=== PATIENT | male | born 1965 | race Caucasian/White ===

== ENCOUNTER 2017-10-22 22:08 | Inpatient (IN) ==
[2017-10-22] MEDS ORDERED: Ondansetron 4 MG/2 ML VIAL IVP ONE (22:32)
--- NOTE | 2017-10-22 22:36 | Emergency Department Note ---
Disposition Clinical Impression: Chronic liver disease Ascites Qualifiers: Ascites type: other type Qualified Code(s): R18.8 - Other ascites Disposition: Admitted As Inpatient Time of Disposition: 00:24 Abdominal Pain HPI - General Chief Complaint: ED Abdominal Pain Stated Complaint: abd swelling,constipation Time Seen by Provider: 10/22/17 22:14 Source: patient Nursing Notes Reviewed: Yes Vital Signs Reviewed: Yes - History of Present Illness Pt Subjective Complaint: abdominal pain Onset (ago): day(s) (2) Consistency: Worsening Location: diffuse Pain Scale: 8 Quality: fullness Radiation: none Migration to: no migration Improves with: nothing Worsens with: other (supine) Context: other (h/o of EtOH) Associated symptoms: Reports: nausea, other (dark urine). Denies: vomiting, diarrhea, fever, chills, melena - Related Data Allergies Allergy/AdvReac Type Severity Reaction Status Date / Time No Known Allergies Allergy Verified 10/22/17 22:12 All systems ED: reviewed and negative except as stated. Review of Systems: As Per HPI Constitutional: Denies: fever, chills, weakness Eyes: Denies: vision change ENT ED: Denies: ear pain, throat pain Cardiovascular: Denies: chest pain, palpitations, dyspnea on exertion Respiratory: Reports: cough (when smoking). Denies: dyspnea, wheezes, hemoptysis Gastrointestinal: Reports: as per HPI. Denies: diarrhea, constipation, hematemesis, melena, hematochezia Genitourinary: Reports: as per HPI Musculoskeletal: Denies: back pain, neck pain Integumentary: Denies: rash Neurological: Denies: headache, weakness, numbness, paresthesias Endocrine: Denies: fatigue Hematological/Lymphatic: Denies: easy bleeding Allergic/Immunologic: Denies: facial swelling Abdominal Pain PMH - Past Medical History Medical history: Reports: no medical history Male Surgical History: Reports: orthopedic, other, other Psychiatric history: Reports: no psych history - Social History Smoking status: Current every day smoker Alcohol use: Reports: heavy Drug use: Reports: none Physical Exam - General Limitations: no limitations General appearance: alert, in no apparent distress - Head Head exam: atraumatic, normocephalic - Eye Eye exam: Present: normal appearance, PERRL, EOMI, scleral icterus. Absent: conjunctival injection - ENT ENT exam: normal exam, normal oropharynx, mucous membranes moist, normal external ear exam - Neck Neck exam: Present: normal inspection, full ROM. Absent: tenderness, lymphadenopathy, thyromegaly, other (JVD) - Chest Chest inspection: Present: normal inspection, symmetric chest wall rise. Absent : tenderness - Respiratory Respiratory exam: Present: normal lung sounds bilaterally. Absent: respiratory distress, wheezes, stridor - Cardiovascular Cardiovascular exam: Present: normal rhythm, tachycardia, normal heart sounds - Abdominal Exam Abdominal exam: Present: soft, Non-Tender, ascites. Absent: guarding, rebound - Extremities Exam Extremities exam: Present: normal inspection, full ROM, normal capillary refill. Absent: pedal edema - Back Exam Back exam: Present: full ROM. Absent: tenderness, CVA tenderness (R), CVA tenderness (L) - Neurological Exam Neurological exam: Present: alert, oriented X3 - Psychiatric Psychiatric exam: Present: normal affect, normal mood - Skin Skin exam: Present: warm, dry, intact, normal color. Absent: rash, cyanosis, diaphoresis Course Course Narrative: Patient is a 51-year-old male smoker that presents with complaint of abdominal distention and fullness that has been worsening over the past 2 days. It's accompanied with some nausea. He mentions daily alcohol use but denies any known history of liver disease. He is coming by a female friend, they both deny any skin color changes, but patient mentions his urine has been a dark orange " for a while now ". No reported fevers, chills, surgeries. Patient is tachycardic otherwise vitals within normal limits. Mentions h/o of HTN taking unknown medication. Denies any other meds or PMHx but admits does not go to doctor often. Pt mentions daily etoh use, typicallly 10 liquor shots daily after work. Last drink 14:00 today. Appears clinically sober. Alert and oriented. denies any h/o of withdrawl symptoms. Patient seen and examined. No acute distress, does not look toxic. Patient's face appears jaundice, mild scleral icterus. Normal oropharynx. No JVD. Lungs clear to auscultation. Tachycardic regular rhythm. Ascites present. Nontender abdomen although patient appears uncomfortable. No pedal edema. Antiemetics ordered. Workup ordered. - Reevaluation(s) Reevaluation #1: Patient initally tachycardic, but no other source criteria at this time. tachycardia improved after 2L O2 placed. Clear fluid. CBC shows no elevation of white count or bands. Lactic acid elevated. Will order fluids. Diagnostic paracentesis performed analysis ordered. EKG sinus rhythm, with LVH , otherwise no acute findings. Hypokalemic, PO potassium ordered. Time: 00:23 Reevaluation #2: Body Fluid analysis within normal limits. CT report hepatic steatosis with evidence of portal hypertension, cholelithiasis, cholecystitis not excluded. Colonic wall thickening nonspecific. Discussed with Dr. Tran, who advised for IV potassium. Pt discussed with and accepted by hospitalists Dr. Gaytan. Time: 01:33 Vital Signs Temperature 98.9 F 10/22/17 22:09 Pulse Rate 122 10/22/17 22:09 Respiratory Rate 20 10/22/17 22:09 Blood Pressure 128/86 10/22/17 22:09 O2 Sat by Pulse Oximetry 94 10/22/17 22:09 Temperature 99.5 F 10/23/17 01:37 Pulse Rate 108 10/23/17 00:41 Respiratory Rate 16 10/23/17 01:37 Blood Pressure 110/76 10/23/17 01:37 O2 Sat by Pulse Oximetry 97 10/23/17 00:41 Oxygen Delivery Oxygen Delivery Nasal Cannula Procedures - Paracentesis Consent Obtained: verbal consent Time Out Performed: Yes Indication: Ascites Procedure: diagnostic paracentesis Location: RLQ Local Anesthetic: lidocaine 1%, with epi Amount of anesthesia used (mL): 3 Bedside Ultrasound Used: yes, Ascites confirmed and location marked Preparation: sterile prep and drape Amount of Fluid Obtained: 60 Fluid: clear, sent to lab for analysis Size of Needle Used: 22 (1.5inch) Post Procedure Exam: awake, alert Complications: pain Abdominal Pain - MDM Narrative Medical decision making narrative: Patient is a chronic alcohol drinker. No previous diagnosis of liver disease. He had drank before his arrival here. He denies any history of withdrawals or DTs. Workup for ascites consistent with chronic liver disease. CT results or hepatic steatosis with evidence of portal hypertension. Patient was discussed with Dr. Morgan who had face time with patient and agreed with workup and evaluation. Diagnostic paracentesis performed. No evidence of infection at this point. Patient was given by mouth potassium and write her for hypokalemia. Fluids were elevated lactic. He was discussed with hospitalist who accepted patient for inpatient evaluation and treatment. Vitals have been stable. Patient has declined analgesics here. Resting comfortable in exam bed. - Medical Records Medical records reviewed: Yes I reviewed the patient's medical records. - Lab Data Lab results reviewed: Yes I reviewed the patient's lab results. Result diagrams: 10/22/17 22:45 10/22/17 22:45 Lab Results 10/22/17 10/22/17 10/22/17 Range/Units 22:18 22:45 22:45 WBC 8.8 (4.3-11.1) K/mcL RBC 3.87 L (4.19-5.50) M/mcL Hgb 14.9 (12.9-16.9) g/dL Hct 40.5 (37.5-50.1) % MCV 104.7 H (83.0-100.0) fL MCH 38.5 H (28.0-33.3) pg MCHC 36.8 H (31.6-35.5) g/dL RDW 14.9 H (11.5-14.5) % Plt Count 127 L (140-400) K/mcL MPV 9.9 (9.4-12.4) fL Immature Gran % 0.3 (0-4) % Seg Neutrophils % 65.6 % Lymphocytes % 23.0 % Monocytes % 8.6 % Eosinophils % 0.9 % Basophils % 1.6 % Neutrophils # 5.7 (1.6-8.9) K/mcL Lymphocytes # 2.0 (0.6-4.6) K/mcL Monocytes # 0.8 (0.0-1.3) K/mcL Eosinophils # 0.1 (0.0-0.6) K/mcL Basophils # 0.1 (0.0-0.2) K/mcL Sodium 132 L (136-145) mEq/L Potassium 2.5 L* (3.5-5.1) mEq/L Chloride 86 L (98-107) mEq/L Carbon Dioxide 33 H (23-29) mEq/L BUN 8 (6-20) mg/dL Creatinine 0.68 L (0.70-1.30) mg/dL Est GFR ( Amer) > 60 (> 60) Est GFR (Non-Af Amer) > 60 (> 60) BUN/Creatinine Ratio 12 (6-26) Glucose 139 H (70-105) mg/dL Calculated Osmolality 275 L (280-300) Lactic Acid (0.5-2.2) mmol/L Calcium 8.5 L (8.6-10.3) mg/dL Total Bilirubin 9.7 H (0.3-1.0) mg/dL Direct Bilirubin 5.5 H (0.0-0.2) mg/dL Indirect Bilirubin 4.2 H (0.0-1.2) mg/dL AST 287 H (13-39) Units/L ALT 57 H (7-52) Units/L Alkaline Phosphatase 300 H (34-104) Units/L B-Natriuretic Peptide (Less than 100) pg/mL Serum Total Protein 6.8 (6.4-8.9) g/dL Albumin 3.5 (3.5-5.7) g/dL Globulin 3.3 (2.4-3.5) g/dL Albumin/Globulin Ratio 1.1 (1.1-2.2) Lipase 140 H (11-82) Units/L Urine Color [place] A (Yellow) Urine Clarity Hazy (Clear) Urine pH 6.5 (5.0-8.0) pH Units Ur Specific Lenore 1.021 (1.010-1.025) Urine Protein Trace (Neg-Trace) mg/dL Urine Glucose (UA) Normal (Normal) mg/dL Urine Ketones Trace H (Negative) mg/dL Urine Blood Negative (Negative) Urine Nitrite Positive A (Negative) Urine Bilirubin Large H (Negative) Urine Urobilinogen 4.0 H (Normal) mg/dL Ur Leukocyte Esterase Small H (Negative) Urine Microscopic RBC 0-3 (0-3) per hpf Urine Microscopic WBC 3-5 H (0-3) per hpf Ur Squamous Epith Cells Few (None-Few) per lpf Urine Bacteria Few (None-Few) per hpf Hyaline Casts Many H (None-Few) per lpf Urine Mucus Few (Few) Ur Oval Fat Bodies Present A (Not Present) Ur Culture Indicated? YES A (NO) Peritoneal Appearance (Clear) Peritoneal Volume mL Peritoneal RBC (0.000 - 0.002) M/mcL Periton Tot Nuc Cells (0-300) TNC/mcL Periton Neutrophils % Periton Lymphocytes % % Periton Monocytes % % Periton Other Cells % % Peritoneal Tot Protein (No Ref Range) g/dL Peritoneal Albumin (No Ref Range) g/dL Peritoneal LDH (No Ref Range) Units/L Peritoneal Glucose (No Ref Range) mg/dL Peritoneal Amylase (No Ref Range) Units/L Ethyl Alcohol (0-10) mg/dL 10/22/17 10/22/17 10/22/17 Range/Units 22:45 22:45 22:45 WBC (4.3-11.1) K/mcL RBC (4.19-5.50) M/mcL Hgb (12.9-16.9) g/dL Hct (37.5-50.1) % MCV (83.0-100.0) fL MCH (28.0-33.3) pg MCHC (31.6-35.5) g/dL RDW (11.5-14.5) % Plt Count (140-400) K/mcL MPV (9.4-12.4) fL Immature Gran % (0-4) % Seg Neutrophils % % Lymphocytes % % Monocytes % % Eosinophils % % Basophils % % Neutrophils # (1.6-8.9) K/mcL Lymphocytes # (0.6-4.6) K/mcL Monocytes # (0.0-1.3) K/mcL Eosinophils # (0.0-0.6) K/mcL Basophils # (0.0-0.2) K/mcL Sodium (136-145) mEq/L Potassium (3.5-5.1) mEq/L Chloride (98-107) mEq/L Carbon Dioxide (23-29) mEq/L BUN (6-20) mg/dL Creatinine (0.70-1.30) mg/dL Est GFR ( Amer) (> 60) Est GFR (Non-Af Amer) (> 60) BUN/Creatinine Ratio (6-26) Glucose (70-105) mg/dL Calculated Osmolality (280-300) Lactic Acid 4.6 H* (0.5-2.2) mmol/L Calcium (8.6-10.3) mg/dL Total Bilirubin (0.3-1.0) mg/dL Direct Bilirubin (0.0-0.2) mg/dL Indirect Bilirubin (0.0-1.2) mg/dL AST (13-39) Units/L ALT (7-52) Units/L Alkaline Phosphatase (34-104) Units/L B-Natriuretic Peptide 263 H (Less than 100) pg/mL Serum Total Protein (6.4-8.9) g/dL Albumin (3.5-5.7) g/dL Globulin (2.4-3.5) g/dL Albumin/Globulin Ratio (1.1-2.2) Lipase (11-82) Units/L Urine Color (Yellow) Urine Clarity (Clear) Urine pH (5.0-8.0) pH Units Ur Specific Lenore (1.010-1.025) Urine Protein (Neg-Trace) mg/dL Urine Glucose (UA) (Normal) mg/dL Urine Ketones (Negative) mg/dL Urine Blood (Negative) Urine Nitrite (Negative) Urine Bilirubin (Negative) Urine Urobilinogen (Normal) mg/dL Ur Leukocyte Esterase (Negative) Urine Microscopic RBC (0-3) per hpf Urine Microscopic WBC (0-3) per hpf Ur Squamous Epith Cells (None-Few) per lpf Urine Bacteria (None-Few) per hpf Hyaline Casts (None-Few) per lpf Urine Mucus (Few) Ur Oval Fat Bodies (Not Present) Ur Culture Indicated? (NO) Peritoneal Appearance (Clear) Peritoneal Volume mL Peritoneal RBC (0.000 - 0.002) M/mcL Periton Tot Nuc Cells (0-300) TNC/mcL Periton Neutrophils % Periton Lymphocytes % % Periton Monocytes % % Periton Other Cells % % Peritoneal Tot Protein (No Ref Range) g/dL Peritoneal Albumin (No Ref Range) g/dL Peritoneal LDH (No Ref Range) Units/L Peritoneal Glucose (No Ref Range) mg/dL Peritoneal Amylase (No Ref Range) Units/L Ethyl Alcohol 262 H (0-10) mg/dL 10/22/17 Range/Units 23:48 WBC (4.3-11.1) K/mcL RBC (4.19-5.50) M/mcL Hgb (12.9-16.9) g/dL Hct (37.5-50.1) % MCV (83.0-100.0) fL MCH (28.0-33.3) pg MCHC (31.6-35.5) g/dL RDW (11.5-14.5) % Plt Count (140-400) K/mcL MPV (9.4-12.4) fL Immature Gran % (0-4) % Seg Neutrophils % % Lymphocytes % % Monocytes % % Eosinophils % % Basophils % % Neutrophils # (1.6-8.9) K/mcL Lymphocytes # (0.6-4.6) K/mcL Monocytes # (0.0-1.3) K/mcL Eosinophils # (0.0-0.6) K/mcL Basophils # (0.0-0.2) K/mcL Sodium (136-145) mEq/L Potassium (3.5-5.1) mEq/L Chloride (98-107) mEq/L Carbon Dioxide (23-29) mEq/L BUN (6-20) mg/dL Creatinine (0.70-1.30) mg/dL Est GFR ( Amer) (> 60) Est GFR (Non-Af Amer) (> 60) BUN/Creatinine Ratio (6-26) Glucose (70-105) mg/dL Calculated Osmolality (280-300) Lactic Acid (0.5-2.2) mmol/L Calcium (8.6-10.3) mg/dL Total Bilirubin (0.3-1.0) mg/dL Direct Bilirubin (0.0-0.2) mg/dL Indirect Bilirubin (0.0-1.2) mg/dL AST (13-39) Units/L ALT (7-52) Units/L Alkaline Phosphatase (34-104) Units/L B-Natriuretic Peptide (Less than 100) pg/mL Serum Total Protein (6.4-8.9) g/dL Albumin (3.5-5.7) g/dL Globulin (2.4-3.5) g/dL Albumin/Globulin Ratio (1.1-2.2) Lipase (11-82) Units/L Urine Color (Yellow) Urine Clarity (Clear) Urine pH (5.0-8.0) pH Units Ur Specific Lenore (1.010-1.025) Urine Protein (Neg-Trace) mg/dL Urine Glucose (UA) (Normal) mg/dL Urine Ketones (Negative) mg/dL Urine Blood (Negative) Urine Nitrite (Negative) Urine Bilirubin (Negative) Urine Urobilinogen (Normal) mg/dL Ur Leukocyte Esterase (Negative) Urine Microscopic RBC (0-3) per hpf Urine Microscopic WBC (0-3) per hpf Ur Squamous Epith Cells (None-Few) per lpf Urine Bacteria (None-Few) per hpf Hyaline Casts (None-Few) per lpf Urine Mucus (Few) Ur Oval Fat Bodies (Not Present) Ur Culture Indicated? (NO) Peritoneal Appearance CLEAR (Clear) Peritoneal Volume 60.0 mL Peritoneal RBC < 0.002 (0.000 - 0.002) M/mcL Periton Tot Nuc Cells 91 (0-300) TNC/mcL Periton Neutrophils 2.0 % Periton Lymphocytes % 33.0 % Periton Monocytes % 11.0 % Periton Other Cells % 54.0 % Peritoneal Tot Protein < 3.0 (No Ref Range) g/dL Peritoneal Albumin < 1.5 (No Ref Range) g/dL Peritoneal LDH 43 (No Ref Range) Units/L Peritoneal Glucose 143 (No Ref Range) mg/dL Peritoneal Amylase 22 (No Ref Range) Units/L Ethyl Alcohol (0-10) mg/dL - Radiology Data Radiology results reviewed: Yes I reviewed the patient's radiology results. - EKG Data EKG attestation: Yes I reviewed and interpreted this EKG. EKG shows normal: sinus rhythm Rate: normal Voltage: c/w LVH When compared to previous EKG there are: previous EKG unavailable Interpretation: no acute changes Attestation Statement - Attestation Attestation: I, Aristides Morgan, examined this patient and my medical decision-making was reviewed with the PRODUCT ANALYST/PA/Advanced Practice Nurse/Resident Physician. I agree with the documented findings, disposition and treatment plan as described except to the extent set forth below. 51-year-old male presents emergency Department with concerns of abdominal distention. Patient denies significant abdominal pain or localization of the pain other than a feeling of stretching. Patient is a chronic alcoholic and drinks in upwards of at least 12 shots of bourbon a day. Last drink today was at noon. He has never gone a day without drinking within the past few years. Patient's abdomen is distended evaluation. He has a significant amount of ascites. Diagnostic paracentesis was performed which improved the patient's pain. CT of the abdomen and pelvis was unable to rule out acute cholecystitis however patient does not have pain in the right upper quadrant. There is no other evidence of acute surgical pathology. Patient is hypokalemic and has multiple other laboratory abnormalities. He will be admitted to the hospital for further care and evaluation.
[2017-10-22] MEDS ORDERED: Lidocaine/EPI 1:100k 1% 20 ML VIAL INFILT ONE (22:46)
[2017-10-22 23:03] LABS: Color,Urine Orange (Yellow)
[2017-10-22 23:04] LABS: Clarity,Urine Hazy (Clear)
[2017-10-22 23:06] LABS: Bilirubin,Urine Large (Negative); Blood,Urine Negative (Negative); Glucose,Urine (UA) Normal (Normal); Ketones,Urine Trace mg/dL (Negative); PH,Urine 6.5 pH Units (5.0-8.0); Specific Gravity,Urine 1.021 (1.010-1.025)
[2017-10-22 23:07] LABS: Leukocyte Esterase,Urine Small (Negative); Nitrite,Urine Positive (Negative); Protein,Urine Trace mg/dL (Neg-Trace)
[2017-10-22 23:20] LABS: RBC,Urine 0-3 per hpf (0-3); Squamous Epithelial Cell,Urine Few per lpf (None-Few)
[2017-10-22 23:27] LABS: Bacteria,Urine Few per hpf (None-Few); Hyaline Casts,Urine Many per lpf (None-Few); Mucus,Urine Few (Few); Oval Fat Bodies,Urine Present (Not Present)
[2017-10-22 23:28] LABS: Alanine Aminotransferase 57 Units/L (7-52); Albumin 3.5 g/dL (3.5-5.7); Albumin/Globulin Ratio 1.1 (1.1-2.2); Alkaline Phosphatase 300 Units/L (34-104); Aspartate Amino Transferase 287 Units/L (13-39); BUN/Creatinine Ratio 12 (6-26); Basophils # 0.1 K/mcL (0.0-0.2); Basophils % 1.6 %; Bilirubin,Direct 5.5 mg/dL (0.0-0.2); Bilirubin,Indirect 4.2 mg/dL (0.0-1.2); Bilirubin,Total 9.7 mg/dL (0.3-1.0); Blood Urea Nitrogen 8 mg/dL (6-20); Calcium 8.5 mg/dL (8.6-10.3); Carbon Dioxide 33 mEq/L (23-29); Chloride 86 mEq/L (98-107); Eosinophils # 0.1 K/mcL (0.0-0.6); Eosinophils % 0.9 %; Globulin 3.3 g/dL (2.4-3.5); Glucose 139 mg/dL (70-105); Hematocrit 40.5 % (37.5-50.1); Hemoglobin 14.9 g/dL (12.9-16.9); Immature Granulocytes % 0.3 % (0-4); Lipase 140 Units/L (11-82); Mean Corpuscular HGB Conc 36.8 g/dL (31.6-35.5); Mean Corpuscular Hemoglobin 38.5 pg (28.0-33.3); Mean Corpuscular Volume 104.7 fL (83.0-100.0); Mean Platelet Volume 9.9 fL (9.4-12.4); Monocytes # 0.8 K/mcL (0.0-1.3); Monocytes % 8.6 %; Neutrophils # 5.7 K/mcL (1.6-8.9); Osmolality,Calculated 275 (280-300); Platelet Count 127 K/mcL (140-400); Potassium 2.5 mEq/L (3.5-5.1); Red Blood Count 3.87 M/mcL (4.19-5.50); Red Cell Distribution Width 14.9 % (11.5-14.5); Segmented Neutrophils % 65.6 %; Sodium 132 mEq/L (136-145); Total Protein 6.8 g/dL (6.4-8.9); eGFR For African Americans > 60 (> 60); eGFR For Non-African Americans > 60 (> 60)
[2017-10-23 00:12] LABS: RBC,Peritoneal Fluid < 0.002 M/mcL
[2017-10-23] MEDS ORDERED: 0.9 % Sodium Chloride 1,000 ML IVC ONE (00:14)
[2017-10-23 00:35] LABS: Amylase,Peritoneal Fluid 22 Units/L (No Ref Range); Glucose,Peritoneal Fluid 143 mg/dL (No Ref Range); LDH,Peritoneal Fluid 43 Units/L (No Ref Range); Total Protein,Peritoneal Fluid < 3.0 g/dL (No Ref Range)
[2017-10-23 01:00] LABS: Appearance of Peritoneal Fl CLEAR (Clear)
[2017-10-23] MEDS ORDERED: Potassium Chloride 40 MEQ, Lidocaine 1% 2 ML in D5% in Water 500 ML IVPB ONE (01:30)
[2017-10-23] MEDS ORDERED: Naloxone 0.4 MG/ML INJ IVP PRN (01:58)
[2017-10-23] MEDS ORDERED: diazePAM 10 MG/2 ML SYRINGE IVP PRN ×4 (02:03)
--- NOTE | 2017-10-23 02:08 | Internal Med History&Physical ---
Date of Encounter: 10/23/17 Time of Encounter: 02:06 Assessment and Plan (1) Decompensated liver disease Current visit: Yes Status: Acute likely 2/2 to alcoholism send Chronic hepatitis serologies Trend LFT consult IR for therapeutic paracentesis (2) Ascites Current visit: Yes Status: Acute portal HTN add aldactone pending paracentesis Qualifiers: Ascites type: due to alcoholic cirrhosis Qualified Code(s): K70.31 - Alcoholic cirrhosis of liver with ascites (3) Hypokalemia Current visit: Yes Status: Acute trend K, PO and IV K replacement, check Mg (4) Alcoholism Current visit: Yes Status: Acute CIWA protocol monitor closely for withdrawal (5) Lactic acid acidosis Current visit: Yes Status: Acute likely related to liver disease No evidence of sepsis on eval ascites tap w/o evidence of SBP cx sent in the ED close monitoring of inpatient course Internal Medicine - H&P: HPI Chief complaint: Abdo swelling History of present illness: Mr. Gallego is a 51 year old male who presents with subacute onset of abdominal swelling 2/2 ascites. He has a hx of HTN but denies any prior knowledge of liver disease. He presents because of 3 weeks hx of progressive abdominal swelling with increased abdo pressure. It got so bad that he could not bend over to tie his shoe laces. His swelling worsened with time and did not improve over the last 3 weeks. He denies having hepatitis viral infection but admits to drinking approx 8-10 shots of liquor daily or every other day at least for the last 10 years. He reports developing tremors of his hands if he doesn't drink regularly. EKG rate 96, ST-T changes that is non-specific CT/CT abd pelvis w iv no oral IMPRESSION: Hepatic steatosis with evidence of portal hypertension. Cholelithiasis is present. In the setting of ascites acute cholecystitis cannot be excluded. Colonic wall thickening is nonspecific and is probably related to hypoproteinemia secondary to chronic liver disease. XR/XR chest 1V portable IMPRESSION: Patchy atelectasis at the lung bases. No acute focal infiltrate. Past Med Surg Social Fam HX - Past Medical History Medical history: no medical history Psychiatric history: no psych history - Past Surgical History Surgical History: no surgical history, non-contributory - Social History Smoking Status: Current every day smoker Smokeless Tobacco Status: Yes Alcohol use: heavy Drug use: none - Additional Family History Additional family history: HTN Internal Medicine - H&P: Meds 3 Allergy/AdvReac Type Severity Reaction Status Date / Time No Known Allergies Allergy Verified 10/22/17 22:12 All Systems PM: A 10-system review of systems was performed and is negative for pertinent findings except as documented above in the HPI. Review of systems: ROS 14 point review of systems reviewed as best as possible given presentation. Pertinent positive or negative as per HPI or otherwise reviewed as negative - Constitutional Vitals: Temp Pulse Resp BP Pulse Ox 99.5 F 108 16 110/76 97 10/23/17 01:37 10/23/17 00:41 10/23/17 01:37 10/23/17 01:37 10/23/17 00:41 Exam: General - AAO x 3 Psych - Appropriate affect/speech. No agitation Eyes - ARLYN. Eye lids intact. Scleral icterus Neuro - No gross peripheral or central neuro deficits on inspection Heart - Sinus. RRR. S1 and S2 present. No added HS/murmurs appreciated. No elevated JVD appreciated. Lung - Adequate air entry b/l, No crackles/wheezes appreciated GI - Tense and distended. No guarding/ridigity. Ascites present. No organomegaly palpable due to ascites. BS+ - No CVA/suprapubic tenderness or palpable bladder distension Skin - Intact. No rash/petechiae/ecchymosis. Warm extremities Internal Med - H&P Results - Labs CBC & Chem 7: 10/22/17 22:45 10/22/17 22:45
[2017-10-23 03:05] LABS: Prothrombin Time 22.1 Seconds (9.4-12.1)
[2017-10-23 03:08] LABS: Activated Partial Thrombo Time 36.3 Seconds (26.0-36.0)
[2017-10-23 03:09] LABS: Alanine Aminotransferase 46 Units/L (7-52); Albumin 2.8 g/dL (3.5-5.7); Alkaline Phosphatase 268 Units/L (34-104); Aspartate Amino Transferase 234 Units/L (13-39); BUN/Creatinine Ratio 11 (6-26); Bilirubin,Direct 4.5 mg/dL (0.0-0.2); Bilirubin,Indirect 3.1 mg/dL (0.0-1.2); Bilirubin,Total 7.6 mg/dL (0.3-1.0); Blood Urea Nitrogen 7 mg/dL (6-20); Calcium 7.5 mg/dL (8.6-10.3); Carbon Dioxide 33 mEq/L (23-29); Chloride 90 mEq/L (98-107); Globulin 2.7 g/dL (2.4-3.5); Glucose 125 mg/dL (70-105); Magnesium 1.6 mg/dL (1.6-2.6); Osmolality,Calculated 273 (280-300); Potassium 3.1 mEq/L (3.5-5.1); Sodium 132 mEq/L (136-145); Total Protein 5.5 g/dL (6.4-8.9); eGFR For African Americans > 60 (> 60); eGFR For Non-African Americans > 60 (> 60)
[2017-10-23 03:42] LABS: Basophils # 0.1 K/mcL (0.0-0.2); Basophils % 1.5 %; Eosinophils % 0.4 %; Immature Granulocytes % 0.4 % (0-4); Lymphocytes # 1.4 K/mcL (0.6-4.6); Lymphocytes % 17.5 %; Mean Corpuscular HGB Conc 36.7 g/dL (31.6-35.5); Mean Corpuscular Hemoglobin 38.6 pg (28.0-33.3); Mean Corpuscular Volume 105.3 fL (83.0-100.0); Mean Platelet Volume 9.5 fL (9.4-12.4); Monocytes # 0.7 K/mcL (0.0-1.3); Monocytes % 8.4 %; Neutrophils # 5.7 K/mcL (1.6-8.9); Platelet Count 123 K/mcL (140-400); Red Blood Count 3.42 M/mcL (4.19-5.50); Red Cell Distribution Width 14.9 % (11.5-14.5); Segmented Neutrophils % 71.8 %
[2017-10-23 03:43] LABS: Hemoglobin 13.2 g/dL (12.9-16.9)
[2017-10-23 04:10] LABS: Hepatitis B Surface Antigen Nonreactive (Nonreactive)
[2017-10-23 06:46] LABS: Hepatitis C Virus Antibody Equivocal (Nonreactive)
[2017-10-23] MEDS: diazePAM 10 MG/2 ML SYRINGE IVP PRN ×2 (07:47→12:19)
[2017-10-23] MEDS: Thiamine (B-1) 100 MG TABLET PO SCH (07:50)
[2017-10-23] MEDS: Folic Acid 1 MG TABLET PO SCH (07:50)
[2017-10-23] MEDS: Vitamin B Complex/Vit C/Vit E 1 EACH TABLET PO SCH (07:50)
[2017-10-23] MEDS ORDERED: 0.9 % Sodium Chloride 250 ML ONE ×2 (11:16→14:03)
[2017-10-23 12:56] LABS: INR 1.9; Prothrombin Time 20.3 Seconds (9.4-12.1)
[2017-10-23] MEDS ORDERED: *HR* LORazepam 2 MG/ML VIAL IVP PRN (13:30)
[2017-10-23] MEDS: *HR* LORazepam 2 MG/ML VIAL IVP PRN ×3 (13:38→23:30)
[2017-10-24 03:30] LABS: Alanine Aminotransferase 39 Units/L (7-52); Albumin 2.7 g/dL (3.5-5.7); Albumin/Globulin Ratio 1.1 (1.1-2.2); Alkaline Phosphatase 229 Units/L (34-104); Aspartate Amino Transferase 213 Units/L (13-39); BUN/Creatinine Ratio 9 (6-26); Blood Urea Nitrogen 6 mg/dL (6-20); Carbon Dioxide 34 mEq/L (23-29); Chloride 95 mEq/L (98-107); Globulin 2.5 g/dL (2.4-3.5); Glucose 102 mg/dL (70-105); Osmolality,Calculated 274 (280-300); Potassium 3.3 mEq/L (3.5-5.1); Sodium 133 mEq/L (136-145); Total Protein 5.2 g/dL (6.4-8.9); eGFR For African Americans > 60 (> 60); eGFR For Non-African Americans > 60 (> 60)
[2017-10-24 03:31] LABS: Alanine Aminotransferase 39 Units/L (7-52); Albumin 2.7 g/dL (3.5-5.7); Albumin/Globulin Ratio 1.1 (1.1-2.2); Alkaline Phosphatase 229 Units/L (34-104); Aspartate Amino Transferase 213 Units/L (13-39); BUN/Creatinine Ratio 9 (6-26); Bilirubin,Direct 5.7 mg/dL (0.0-0.2); Bilirubin,Indirect 4.4 mg/dL (0.0-1.2); Bilirubin,Total 10.1 mg/dL (0.3-1.0); Blood Urea Nitrogen 6 mg/dL (6-20); Carbon Dioxide 33 mEq/L (23-29); Chloride 96 mEq/L (98-107); Globulin 2.5 g/dL (2.4-3.5); Glucose 102 mg/dL (70-105); Magnesium 1.4 mg/dL (1.6-2.6); Osmolality,Calculated 276 (280-300); Potassium 3.4 mEq/L (3.5-5.1); Sodium 134 mEq/L (136-145); Total Protein 5.2 g/dL (6.4-8.9); eGFR For African Americans > 60 (> 60); eGFR For Non-African Americans > 60 (> 60)
[2017-10-24 04:26] LABS: Basophils # 0.1 K/mcL (0.0-0.2); Basophils % 1.4 %; Eosinophils % 0.5 %; Hematocrit 31.7 % (37.5-50.1); Hemoglobin 11.5 g/dL (12.9-16.9); Immature Granulocytes % 0.6 % (0-4); Lymphocytes # 0.9 K/mcL (0.6-4.6); Lymphocytes % 14.1 %; Mean Corpuscular HGB Conc 36.3 g/dL (31.6-35.5); Mean Corpuscular Volume 107.5 fL (83.0-100.0); Mean Platelet Volume 10.2 fL (9.4-12.4); Monocytes # 0.5 K/mcL (0.0-1.3); Monocytes % 8.3 %; Neutrophils # 4.9 K/mcL (1.6-8.9); Nucleated Red Blood Cells 0.3 /100 WBC (0); Platelet Count 101 K/mcL (140-400); Red Blood Count 2.95 M/mcL (4.19-5.50); Red Cell Distribution Width 15.3 % (11.5-14.5); Segmented Neutrophils % 75.1 %
[2017-10-24] MEDS ORDERED: *HR* Enoxaparin 30 MG/0.3 ML SYRINGE SQ SCH (06:00)
[2017-10-24] MEDS ORDERED: *HR* Enoxaparin 40 MG/0.4 ML SYRINGE SQ SCH (06:00)
[2017-10-24] MEDS: Vitamin B Complex/Vit C/Vit E 1 EACH TABLET PO SCH (10:01)
[2017-10-24] MEDS: Folic Acid 1 MG TABLET PO SCH (10:02)
[2017-10-24] MEDS ORDERED: Potassium Chloride Elixir 20 MEQ/15 ML UDC PO ONE (10:02)
[2017-10-24] MEDS: Thiamine (B-1) 100 MG TABLET PO SCH (10:02)
--- NOTE | 2017-10-24 10:07 | Electrocardiograph Report ---
[address] [address] Test Date: 2017-10-22 Pat Name: Bijan Gallego Department: 104 Room: 2A11 Gender: M [employer]: : [id number] Requested By: Andre Palacio Order Number: [id number] Reading MD: Geneva Ricks Measurements Intervals [place] Rate: 96 P: 6 MN: 172 QRS: -13 QRSD: 89 T: 0 QT: 399 QTc: 453 Interpretive Statements SINUS RHYTHM DIFFUSE NONSPECIFIC ST ABNORMALITIES Electronically Signed On 10-24-2017 10:06:03 EST by Geneva Ricks
[2017-10-24] MEDS: *HR* LORazepam 2 MG/ML VIAL IVP PRN ×2 (14:41→22:27)
--- NOTE | 2017-10-24 15:39 | Internal Med Progress Note ---
Date of Encounter: 10/24/17 Time of Encounter: 10:00 - Assessment and plan (1) Alcohol withdrawal Current Visit: Yes Status: Acute Assessment and plan: Patient is noted to have history of heavy alcohol abuse with cirrhosis and ascites. Continue CIWA protocol with PRN IV Ativan ; noted to have low-grade fever and tachycardia, likely related to alcohol withdrawal. Continue thiamine and folate supplements. When necessary antiemetics. PPI. Supportive care. Qualifiers: Complication of substance-induced condition: uncomplicated Qualified Code(s ): F10.230 - Alcohol dependence with withdrawal, uncomplicated (2) Ascites Current Visit: Yes Status: Acute Assessment and plan: CT abdomen showed large volume ascites. Interventional radiology was consulted , however patient was noted to have minimal fluid and therapeutic paracentesis could not be completed. Continue to monitor. Qualifiers: Ascites type: due to alcoholic cirrhosis Qualified Code(s): K70.31 - Alcoholic cirrhosis of liver with ascites (3) Chronic liver disease Current Visit: Yes Status: Chronic Assessment and plan: CT abdomen showed hepatic steatosis with portal hypertension. However, patient does have stigmata of chronic liver disease like anemia, thrombocytopenia, portal hypertension, low BUN, ascites; outpatient GI f/up; continue Aldactone; (4) Alcoholism Current Visit: Yes Status: Chronic (5) Hypokalemia Current Visit: Yes Status: Acute Assessment and plan: Related to alcohol abuse. Supplement with oral potassium chloride. Noted to also have hypomagnesemia, supplement with IV magnesium sulfate. Monitor and replete electrolytes as needed. (6) Lactic acid acidosis Current Visit: Yes Status: Resolved Assessment and plan: Improving with IV hydration. Likely related to liver disease. - Subjective Interval history: Noted to be slightly drowsy, able to answer simple questions. Denies chest or abdominal pain, nausea, vomiting. No visual or auditory hallucinations. Sitter at bedside as patient was noted to be occasionally confused and trying to get out of bed. - Constitutional Vitals: Temp Pulse Resp BP Pulse Ox 100.3 F H 100 16 116/75 92 10/24/17 04:22 10/24/17 04:22 10/24/17 04:22 10/24/17 04:22 10/24/17 04:22 General appearance: Present: A&O X 2, answers questions appropriately - Respiratory Respiratory exam: Present: decreased breath sounds (at B/L bases), CTAB. Absent : accessory muscle use, rales, rhonchi, wheezes - Cardiovascular Cardiovascular exam: Present: RRR, +S1, +S2, tachycardia. Absent: diastolic murmur, gallop, rubs, systolic murmur - GI/Abdominal GI/Abdominal exam: Present: distended, firm, normal bowel sounds, soft, no peritoneal signs. Absent: tenderness - Extremities Exam Extremities exam: Present: pedal edema, warm, radial pulses palpable and symmetrical. Absent: calf tenderness, cyanotic - Neurological Exam Neurological exam: Present: CN II-XII intact, oriented X3 (lethargic), no focal deficits. Absent: pronater drift, facial droop, speech deficit Internal Medicine: Result - Labs CBC & Chem 7: 10/24/17 02:57 10/24/17 02:57 Labs: Short CBC 10/24/17 Range/Units 02:57 WBC 6.5 (4.3-11.1) K/mcL Hgb 11.5 L D (12.9-16.9) g/dL Hct 31.7 L (37.5-50.1) % Plt Count 101 L (140-400) K/mcL Neutrophils # 4.9 (1.6-8.9) K/mcL BMP 10/24/17 10/24/17 02:57 02:57 Sodium 134 L 133 L Potassium 3.4 L 3.3 L Chloride 96 L 95 L Carbon Dioxide 33 H 34 H BUN 6 6 Creatinine 0.68 L 0.69 L Glucose 102 102 Calcium 8.0 L 8.0 L Liver Function 10/24/17 10/24/17 Range/Units 02:57 02:57 Total Bilirubin 10.1 H 10.0 H (0.3-1.0) mg/dL Direct Bilirubin 5.7 H (0.0-0.2) mg/dL AST 213 H 213 H (13-39) Units/L ALT 39 39 (7-52) Units/L Alkaline Phosphatase 229 H 229 H (34-104) Units/L Albumin 2.7 L 2.7 L (3.5-5.7) g/dL - ABG Interpretation ABG results: PT/INR, D-dimer PT 20.3 Seconds (9.4-12.1) H 10/23/17 12:44 Consult Discharge Plan - Plan Referrals: NONE,PCP [Primary Care Provider] -
[2017-10-25 05:55] LABS: Basophils # 0.1 K/mcL (0.0-0.2); Basophils % 1.1 %; Eosinophils # 0.1 K/mcL (0.0-0.6); Eosinophils % 1.8 %; Hematocrit 32.9 % (37.5-50.1); Hemoglobin 11.6 g/dL (12.9-16.9); Immature Granulocytes % 0.8 % (0-4); Lymphocytes # 1.1 K/mcL (0.6-4.6); Mean Corpuscular HGB Conc 35.3 g/dL (31.6-35.5); Mean Corpuscular Volume 107.9 fL (83.0-100.0); Mean Platelet Volume 10.1 fL (9.4-12.4); Monocytes # 0.5 K/mcL (0.0-1.3); Monocytes % 8.7 %; Neutrophils # 4.3 K/mcL (1.6-8.9); Platelet Count 109 K/mcL (140-400); Red Blood Count 3.05 M/mcL (4.19-5.50); Red Cell Distribution Width 15.1 % (11.5-14.5); Segmented Neutrophils % 69.6 %
[2017-10-25 06:17] LABS: Alanine Aminotransferase 38 Units/L (7-52); Albumin 2.7 g/dL (3.5-5.7); Albumin/Globulin Ratio 1.1 (1.1-2.2); Alkaline Phosphatase 222 Units/L (34-104); Aspartate Amino Transferase 198 Units/L (13-39); BUN/Creatinine Ratio 6 (6-26); Bilirubin,Direct 6.7 mg/dL (0.0-0.2); Bilirubin,Indirect 4.2 mg/dL (0.0-1.2); Bilirubin,Total 10.9 mg/dL (0.3-1.0); Blood Urea Nitrogen 4 mg/dL (6-20); Calcium 8.1 mg/dL (8.6-10.3); Carbon Dioxide 32 mEq/L (23-29); Chloride 99 mEq/L (98-107); Globulin 2.5 g/dL (2.4-3.5); Glucose 118 mg/dL (70-105); Magnesium 1.8 mg/dL (1.6-2.6); Osmolality,Calculated 278 (280-300); Potassium 3.2 mEq/L (3.5-5.1); Sodium 135 mEq/L (136-145); Total Protein 5.2 g/dL (6.4-8.9); eGFR For African Americans > 60 (> 60); eGFR For Non-African Americans > 60 (> 60)
[2017-10-25] MEDS: Folic Acid 1 MG TABLET PO SCH (08:59)
[2017-10-25] MEDS: Vitamin B Complex/Vit C/Vit E 1 EACH TABLET PO SCH (08:59)
[2017-10-25] MEDS: Thiamine (B-1) 100 MG TABLET PO SCH (08:59)
[2017-10-25] MEDS ORDERED: Potassium Chloride Elixir 20 MEQ/15 ML UDC PO ONE (09:06)
--- NOTE | 2017-10-25 13:54 | Gastroenterology Consult Note ---
Date of Encounter: 10/25/17 Time of Encounter: 10:30 - Time Spent With Patient Total time spent is greater than 50% in coordination of care (as documented) at patient's floor/unit and/or counseling patient: GI History of Present Illness - Data of Consult Requesting Physician: Fauzia Montoya MD - Consult Narrative History of present illness: Mr. Gallego is a 51 year old male Past Med Surg Social Fam HX - Past Medical History Medical history: no medical history Psychiatric history: no psych history - Past Surgical History Surgical History: no surgical history, non-contributory - Social History Smoking Status: Current every day smoker Smokeless Tobacco Status: Yes Alcohol use: heavy Drug use: none - Constitutional Vitals: Temp Pulse Resp BP Pulse Ox 98.1 F 106 17 122/84 90 10/25/17 07:39 10/25/17 07:39 10/25/17 07:39 10/25/17 07:39 10/25/17 07:39 Results - Labs CBC & Chem 7: 10/28/17 05:19 10/28/17 05:19 Labs: Last Result Calcium 8.1 mg/dL (8.6-10.3) L 10/25/17 05:09 Peritoneal Appearance CLEAR (Clear) 10/22/17 23:48 Peritoneal Volume 60.0 mL 10/22/17 23:48 Peritoneal RBC < 0.002 M/mcL (0.000-0.002) 10/22/17 23:48 Periton Tot Nuc Cells 91 TNC/mcL (0-300) 10/22/17 23:48 Periton Lymphocytes % 33.0 % 10/22/17 23:48 Periton Monocytes % 11.0 % 10/22/17 23:48 Periton Other Cells % 54.0 % 10/22/17 23:48 Peritoneal Tot Protein < 3.0 g/dL (No Ref Range) 10/22/17 23:48 Peritoneal Albumin < 1.5 g/dL (No Ref Range) 10/22/17 23:48 Peritoneal LDH 43 Units/L (No Ref Range) 10/22/17 23:48 Peritoneal Glucose 143 mg/dL (No Ref Range) 10/22/17 23:48 Peritoneal Amylase 22 Units/L (No Ref Range) 10/22/17 23:48 Entire Visit Hgb 11.6 g/dL (12.9-16.9) L 10/25/17 05:09 Hct 32.9 % (37.5-50.1) L 10/25/17 05:09 PT 20.3 Seconds (9.4-12.1) H 10/23/17 12:44 Total Bilirubin 10.9 mg/dL (0.3-1.0) H 10/25/17 05:09 AST 198 Units/L (13-39) H 10/25/17 05:09 ALT 38 Units/L (7-52) 10/25/17 05:09 Ammonia 72 mcmol/L (16-53) H 10/25/17 11:45 Lipase 140 Units/L (11-82) H 10/22/17 22:45 - ABG ABG results: PT/INR, D-dimer PT 20.3 Seconds (9.4-12.1) H 10/23/17 12:44 - Impressions Impressions Head CT 10/25/17 10:00 IMPRESSION: No acute intracranial abnormality. D/ / Fátima Landa Cha, MD / Fátima Landa Cha, MD Interpreting Provider: Fátima Landa Cha, MD Consult Discharge Plan - Plan Instructions: Spironolactone (By mouth), Furosemide (By mouth), Prednisone (By mouth), Omeprazole (By mouth), Folic Acid (By mouth), Lactulose (By mouth), Cirrhosis (DC), Alcohol Intoxication (DC), Alcohol Withdrawal (DC) Referrals: Eagle De Leon MD [Partnered Physician] - 11/10/17 11:45 am (2 weeks, pLease follow up as schedule...) NONE,PCP [Primary Care Provider] - Ashly Segundo CNP [Advanced Practice Nurse] - 11/03/17 10:30 am (Please follow up as schedule) Prescriptions: Folic Acid 1 mg PO DAILY #30 tablet Furosemide [Lasix] 20 mg PO DAILY #30 tablet Lactulose 20 gm PO TID #1000 ml Omeprazole [PriLOSEC] 20 mg PO DAILY@0630 #30 capsule. prednisoLONE [Prelone] 40 mg PO DAILY #30 udc Spironolactone [Aldactone] 50 mg PO DAILY #30 tablet Thiamine (B-1) [Vitamin B-1] 100 mg PO DAILY #30 tablet Vitamin B Complex/Vit C/Vit E [Stresstab] 1 each PO DAILY #30 tablet - Attending Attestation Patient admitted with acute alcoholic hepatitis. Agree with IV hydration, antibiotics and seizure and DT precautions. MVI and folic acid. Had a long discussion with patient to discontinue alcohol but, patient lacks motivation to do so.
--- NOTE | 2017-10-25 14:14 | Internal Med Progress Note ---
Date of Encounter: 10/25/17 Time of Encounter: 08:45 - Assessment and plan (1) Alcoholic hepatitis Current Visit: Yes Status: Acute Assessment and plan: Patient is noted to have jaundice, hyperbilirubinemia, mildly elevated INR along with ascites. Maddreys discriminant fractions is 49, will start steroids and PPI; IV hydration and supportive care; case d/w GI, recommend IV Rocephin; check serum ammonia level and start Lactulose if needed; Will check CT head due to unwitnessed fall and elevated INR; Qualifiers: Ascites presence: with ascites Qualified Code(s): K70.11 - Alcoholic hepatitis with ascites (2) Alcohol withdrawal Current Visit: Yes Status: Acute Assessment and plan: Patient is noted to have history of heavy alcohol abuse with hepatitis and ascites. Continue CIWA protocol with PRN IV Ativan ; improved fever but still has tachycardia; Continue thiamine and folate supplements. When necessary antiemetics. PPI. Supportive care. Qualifiers: Complication of substance-induced condition: uncomplicated Qualified Code(s ): F10.230 - Alcohol dependence with withdrawal, uncomplicated (3) Ascites Current Visit: Yes Status: Acute Assessment and plan: CT abdomen showed large volume ascites. Interventional radiology was consulted , however patient was noted to have minimal fluid and therapeutic paracentesis could not be completed. Continue to monitor. Check RUQ U/S. Qualifiers: Ascites type: due to alcoholic cirrhosis Qualified Code(s): K70.31 - Alcoholic cirrhosis of liver with ascites (4) Chronic liver disease Current Visit: Yes Status: Chronic Assessment and plan: CT abdomen showed hepatic steatosis with portal hypertension. However, patient does have stigmata of chronic liver disease like anemia, thrombocytopenia, portal hypertension, low BUN, ascites; continue Aldactone; (5) Alcoholism Current Visit: Yes Status: Chronic (6) Hypokalemia Current Visit: Yes Status: Acute Assessment and plan: Related to alcohol abuse. Supplement with oral potassium chloride. Monitor and replete electrolytes as needed. (7) Lactic acid acidosis Current Visit: Yes Status: Resolved - Subjective Interval history: Had a fall this morning, unwitnessed; reports did not hit his head; denies pain at any site; knows where he is but cannot give detailed answer to further questions; poor appetite; no nausea, vomiting, abdominal pain; - Constitutional Vitals: Temp Pulse Resp BP Pulse Ox 98.1 F 106 17 122/84 90 10/25/17 07:39 10/25/17 07:39 10/25/17 07:39 10/25/17 07:39 10/25/17 07:39 General appearance: Present: A&O X 2. Absent: answers questions appropriately - Respiratory Respiratory exam: Present: CTAB. Absent: accessory muscle use, rales, rhonchi, wheezes - Cardiovascular Cardiovascular exam: Present: RRR, +S1, +S2, tachycardia. Absent: diastolic murmur, gallop, rubs, systolic murmur - GI/Abdominal GI/Abdominal exam: Present: distended, firm, normal bowel sounds, soft ( nontender), no peritoneal signs. Absent: tenderness Internal Medicine: Result - Labs CBC & Chem 7: 10/25/17 05:09 10/25/17 05:09 Labs: Short CBC 10/25/17 Range/Units 05:09 WBC 6.1 (4.3-11.1) K/mcL Hgb 11.6 L (12.9-16.9) g/dL Hct 32.9 L (37.5-50.1) % Plt Count 109 L (140-400) K/mcL Neutrophils # 4.3 (1.6-8.9) K/mcL BMP 10/25/17 05:09 Sodium 135 L Potassium 3.2 L Chloride 99 Carbon Dioxide 32 H BUN 4 L Creatinine 0.70 Glucose 118 H Calcium 8.1 L Liver Function 10/25/17 Range/Units 05:09 Total Bilirubin 10.9 H (0.3-1.0) mg/dL Direct Bilirubin 6.7 H (0.0-0.2) mg/dL AST 198 H (13-39) Units/L ALT 38 (7-52) Units/L Alkaline Phosphatase 222 H (34-104) Units/L Albumin 2.7 L (3.5-5.7) g/dL - ABG Interpretation ABG results: PT/INR, D-dimer PT 20.3 Seconds (9.4-12.1) H 10/23/17 12:44 - Impressions Impressions Head CT 10/25/17 10:00 IMPRESSION: No acute intracranial abnormality. D/ / Fátima Landa Cha, MD / Fátima Landa Cha, MD Interpreting Provider: Fátima Landa Cha, MD Consult Discharge Plan - Plan Referrals: NONE,PCP [Primary Care Provider] -
[2017-10-25] MEDS: cefTRIAXone 1,000 MG in Water for inj. (sterile) 20 ML 10 ML IVP SCH (14:30)
[2017-10-25] MEDS: PrednisoLONE Oral Soln 15 MG/5 ML UDC PO SCH (14:31)
[2017-10-25] MEDS: D5% in 0.9% NACL 1,000 ML IVC SCH (14:31)
[2017-10-25] MEDS: Lactulose Oral Soln 20 GM/30 ML UDC PO SCH ×2 (18:47→21:03)
[2017-10-26 02:57] LABS: Basophils % 0.5 %; Immature Granulocytes % 0.5 % (0-4); Lymphocytes # 0.6 K/mcL (0.6-4.6); Mean Corpuscular HGB Conc 35.3 g/dL (31.6-35.5); Mean Corpuscular Hemoglobin 38.6 pg (28.0-33.3); Mean Corpuscular Volume 109.3 fL (83.0-100.0); Mean Platelet Volume 9.7 fL (9.4-12.4); Monocytes # 0.3 K/mcL (0.0-1.3); Monocytes % 5.3 %; Neutrophils # 5.4 K/mcL (1.6-8.9); Nucleated Red Blood Cells 0.3 /100 WBC (0); Platelet Count 112 K/mcL (140-400); Red Blood Count 3.11 M/mcL (4.19-5.50); Red Cell Distribution Width 15.8 % (11.5-14.5); Segmented Neutrophils % 83.7 %
[2017-10-26 03:10] LABS: INR 2.5; Prothrombin Time 27.8 Seconds (9.4-12.1)
[2017-10-26 03:20] LABS: Alanine Aminotransferase 36 Units/L (7-52); Albumin 2.6 g/dL (3.5-5.7); Alkaline Phosphatase 205 Units/L (34-104); Aspartate Amino Transferase 169 Units/L (13-39); BUN/Creatinine Ratio 4 (6-26); Bilirubin,Total 9.2 mg/dL (0.3-1.0); Blood Urea Nitrogen 3 mg/dL (6-20); Carbon Dioxide 28 mEq/L (23-29); Chloride 105 mEq/L (98-107); Globulin 2.6 g/dL (2.4-3.5); Glucose 149 mg/dL (70-105); Magnesium 1.8 mg/dL (1.6-2.6); Osmolality,Calculated 283 (280-300); Sodium 137 mEq/L (136-145); Total Protein 5.2 g/dL (6.4-8.9); eGFR For African Americans > 60 (> 60); eGFR For Non-African Americans > 60 (> 60)
[2017-10-26] MEDS: D5% in 0.9% NACL 1,000 ML IVC SCH (06:10)
[2017-10-26] MEDS: Thiamine (B-1) 100 MG TABLET PO SCH (10:24)
[2017-10-26] MEDS: Folic Acid 1 MG TABLET PO SCH (10:24)
[2017-10-26] MEDS: Vitamin B Complex/Vit C/Vit E 1 EACH TABLET PO SCH (10:24)
[2017-10-26] MEDS: Lactulose Oral Soln 20 GM/30 ML UDC PO SCH ×3 (10:25→21:56)
[2017-10-26] MEDS: cefTRIAXone 1,000 MG in Water for inj. (sterile) 20 ML 10 ML IVP SCH (10:25)
[2017-10-26] MEDS: PrednisoLONE Oral Soln 15 MG/5 ML UDC PO SCH (10:55)
--- NOTE | 2017-10-26 15:25 | Internal Med Progress Note ---
Date of Encounter: 10/26/17 Time of Encounter: 10:00 - Assessment and plan (1) Alcoholic hepatitis Current Visit: Yes Status: Acute Assessment and plan: Patient is noted to have jaundice, hyperbilirubinemia, elevated INR along with minimal ascites. Increased Maddreys discriminant fractions, continue steroids, IV Rocephin and PPI; IV hydration and supportive care; GI on board; Serum ammonia noted to be worse, although no significant change in mental status ; will increase Lactulose to 45mg TID; RUQ U/S shows significant hepatic steatosis and minimal ascites; CT head due to unwitnessed fall- showed no e/o intracranial bleed; Plan of care, risk of progression to cirrhosis, MELD score has been d/w patient' s significant other, both in person and on the phone- tearful initially, but more accepting now; motivated to help patient abstain from alcohol; Qualifiers: Ascites presence: with ascites Qualified Code(s): K70.11 - Alcoholic hepatitis with ascites (2) Alcohol withdrawal Current Visit: Yes Status: Acute Assessment and plan: Improving. Continue CIWA protocol with PRN IV Ativan ; improved vital signs; no tremors; Continue thiamine and folate supplements. When necessary antiemetics. PPI. Supportive care. Qualifiers: Complication of substance-induced condition: uncomplicated Qualified Code(s ): F10.230 - Alcohol dependence with withdrawal, uncomplicated (3) Ascites Current Visit: Yes Status: Chronic Assessment and plan: Interventional radiology was consulted, however patient was noted to have minimal fluid and therapeutic paracentesis could not be completed. Continue to monitor. RUQ U/S shows minimal ascites.. Qualifiers: Ascites type: due to alcoholic cirrhosis Qualified Code(s): K70.31 - Alcoholic cirrhosis of liver with ascites (4) Chronic liver disease Current Visit: Yes Status: Chronic (5) Alcoholism Current Visit: Yes Status: Chronic (6) Hypokalemia Current Visit: Yes Status: Resolved (7) Lactic acid acidosis Current Visit: Yes Status: Resolved - Subjective Interval history: Reports feeling hungry and anxiety; no abdominal pain, nausea, vomiting; improved abdominal distension; oriented to person and place; having bowel movements with Lactulose; - Constitutional Vitals: Temp Pulse Resp BP Pulse Ox 98.7 F 91 18 114/76 93 10/26/17 15:03 10/26/17 15:03 10/26/17 15:03 10/26/17 15:03 10/26/17 15:03 General appearance: Present: A&O X 2, answers questions appropriately - Respiratory Respiratory exam: Present: CTAB. Absent: accessory muscle use, rales, rhonchi, wheezes - Cardiovascular Cardiovascular exam: Present: RRR, +S1, +S2. Absent: diastolic murmur, gallop, rubs, systolic murmur - GI/Abdominal GI/Abdominal exam: Present: distended, normal bowel sounds, soft (mild tenderness in RUQ), no peritoneal signs. Absent: tenderness - Extremities Exam Extremities exam: Present: full ROM, warm, radial pulses palpable and symmetrical. Absent: calf tenderness, cyanotic, pedal edema - Neurological Exam Neurological exam: Present: altered, CN II-XII intact, no focal deficits. Absent: pronater drift, facial droop, speech deficit Internal Medicine: Result - Labs CBC & Chem 7: 10/26/17 02:47 10/26/17 02:47 Labs: Short CBC 10/26/17 Range/Units 02:47 WBC 6.4 (4.3-11.1) K/mcL Hgb 12.0 L (12.9-16.9) g/dL Hct 34.0 L (37.5-50.1) % Plt Count 112 L (140-400) K/mcL Neutrophils # 5.4 (1.6-8.9) K/mcL BMP 10/26/17 02:47 Sodium 137 Potassium 4.0 Chloride 105 Carbon Dioxide 28 BUN 3 L Creatinine 0.69 L Glucose 149 H Calcium 8.0 L Liver Function 10/26/17 Range/Units 02:47 Total Bilirubin 9.2 H (0.3-1.0) mg/dL AST 169 H (13-39) Units/L ALT 36 (7-52) Units/L Alkaline Phosphatase 205 H (34-104) Units/L Albumin 2.6 L (3.5-5.7) g/dL - ABG Interpretation ABG results: PT/INR, D-dimer PT 27.8 Seconds (9.4-12.1) H 10/26/17 02:47 - Impressions Impressions Abdomen Ultrasound 10/26/17 08:30 IMPRESSION: Limited evaluation secondary to body habitus and overlying bowel gas. The liver is diffusely increased in echogenicity and heterogeneous in echotexture compatible with underlying diffuse hepatocellular disease, hepatic steatosis. No obvious lesion is noted however the liver is difficult to penetrate and evaluation of the deeper portions is limited. Small amount of ascites. Gallbladder is limited in evaluation with mild wall thickening which may be related to underlying liver disease and ascites. D/ / 10/26/2017 10:07:21 Cody Ruff MD / marisela Interpreting Provider: Cody Ruff MD Consult Discharge Plan - Plan Referrals: NONE,PCP [Primary Care Provider] -
[2017-10-26] MEDS: *HR* LORazepam 2 MG/ML VIAL IVP PRN (21:51)
[2017-10-27 03:51] LABS: Basophils % 0.4 %; Eosinophils # 0.1 K/mcL (0.0-0.6); Eosinophils % 0.6 %; Hematocrit 36.4 % (37.5-50.1); Hemoglobin 12.7 g/dL (12.9-16.9); Immature Granulocytes % 0.6 % (0-4); Lymphocytes # 1.1 K/mcL (0.6-4.6); Lymphocytes % 12.1 %; Mean Corpuscular HGB Conc 34.9 g/dL (31.6-35.5); Mean Corpuscular Hemoglobin 38.6 pg (28.0-33.3); Mean Corpuscular Volume 110.6 fL (83.0-100.0); Mean Platelet Volume 9.4 fL (9.4-12.4); Monocytes # 0.7 K/mcL (0.0-1.3); Monocytes % 8.1 %; Neutrophils # 7.1 K/mcL (1.6-8.9); Nucleated Red Blood Cells 0.2 /100 WBC (0); Platelet Count 136 K/mcL (140-400); Red Blood Count 3.29 M/mcL (4.19-5.50); Red Cell Distribution Width 17.2 % (11.5-14.5); Segmented Neutrophils % 78.2 %
[2017-10-27 04:07] LABS: Alanine Aminotransferase 38 Units/L (7-52); Albumin 2.8 g/dL (3.5-5.7); Alkaline Phosphatase 207 Units/L (34-104); Aspartate Amino Transferase 138 Units/L (13-39); BUN/Creatinine Ratio 8 (6-26); Bilirubin,Total 7.9 mg/dL (0.3-1.0); Blood Urea Nitrogen 5 mg/dL (6-20); Calcium 8.3 mg/dL (8.6-10.3); Carbon Dioxide 26 mEq/L (23-29); Chloride 108 mEq/L (98-107); Globulin 2.8 g/dL (2.4-3.5); Glucose 122 mg/dL (70-105); Osmolality,Calculated 289 (280-300); Potassium 3.4 mEq/L (3.5-5.1); Sodium 140 mEq/L (136-145); Total Protein 5.6 g/dL (6.4-8.9); eGFR For African Americans > 60 (> 60); eGFR For Non-African Americans > 60 (> 60)
[2017-10-27 04:23] LABS: Anisocytosis 1+ (Not Present); Platelet Estimate Decreased (Normal); Polychromasia 1+ (Not Present); Target Cells 1+ (Not Present)
[2017-10-27 04:24] LABS: Macrocytosis Present (Not Present)
[2017-10-27] MEDS: cefTRIAXone 1,000 MG in Water for inj. (sterile) 20 ML 10 ML IVP SCH (08:54)
[2017-10-27] MEDS: Thiamine (B-1) 100 MG TABLET PO SCH (08:55)
[2017-10-27] MEDS: Folic Acid 1 MG TABLET PO SCH (08:55)
[2017-10-27] MEDS: Lactulose Oral Soln 20 GM/30 ML UDC PO SCH ×3 (08:55→20:47)
[2017-10-27] MEDS: Vitamin B Complex/Vit C/Vit E 1 EACH TABLET PO SCH (08:55)
[2017-10-27] MEDS: D5% in 0.9% NACL 1,000 ML IVC SCH ×2 (08:56→11:37)
[2017-10-27] MEDS: PrednisoLONE Oral Soln 15 MG/5 ML UDC PO SCH (08:56)
--- NOTE | 2017-10-27 09:42 | Internal Med Progress Note ---
Date of Encounter: 10/27/17 Time of Encounter: 09:40 - Assessment and plan (1) Alcoholic hepatitis Current Visit: Yes Status: Acute Assessment and plan: Patient is noted to have jaundice, hyperbilirubinemia, elevated INR along with minimal ascites. Increased Maddreys discriminant fractions, continue steroids, IV Rocephin and PPI; GI on board; Rocephin has been started prophylactically for SBP given the patient's abdominal pain with minimal ascites as well as an elevated temperature of over 100 while hospitalized here. Serum ammonia is at 49 today. Was 97 yesterday. Continue with Lactulose to 45mg TID; RUQ U/S shows significant hepatic steatosis and minimal ascites; CT head due to unwitnessed fall- showed no e/o intracranial bleed; Per Dr. Montoya, Plan of care, risk of progression to cirrhosis, MELD score has been d/w patient's significant other, both in person and on the phone- tearful initially, but more accepting now; motivated to help patient abstain from alcohol; Qualifiers: Ascites presence: with ascites Qualified Code(s): K70.11 - Alcoholic hepatitis with ascites (2) Ascites Current Visit: Yes Status: Chronic Assessment and plan: Interventional radiology was consulted, however patient was noted to have minimal fluid and therapeutic paracentesis could not be completed. Continue to monitor. RUQ U/S shows minimal ascites.. Qualifiers: Ascites type: due to alcoholic cirrhosis Qualified Code(s): K70.31 - Alcoholic cirrhosis of liver with ascites (3) Chronic liver disease Current Visit: Yes Status: Chronic Assessment and plan: CT abdomen showed hepatic steatosis with portal hypertension. However, patient does have stigmata of chronic liver disease like anemia, thrombocytopenia, portal hypertension, low BUN, ascites; continue Aldactone; (4) Decompensated liver disease Current Visit: Yes Status: Acute Assessment and plan: As above. GI is following. Will need follow-up with him as an outpatient. (5) Lactic acid acidosis Current Visit: Yes Status: Resolved Assessment and plan: Resolved. Likely related to liver disease. (6) Alcohol withdrawal Current Visit: Yes Status: Acute Assessment and plan: Improving. Continue CIWA protocol with PRN IV Ativan. He did require 2 mg of IV Ativan last night. Symptomatically improved . Continue thiamine and folate supplements. When necessary antiemetics. PPI. Supportive care. Qualifiers: Complication of substance-induced condition: uncomplicated Qualified Code(s ): F10.230 - Alcohol dependence with withdrawal, uncomplicated (7) DVT prophylaxis Current Visit: Yes Status: Acute Assessment and plan: scds - Subjective Interval history: Patient was seen and examined. He was initially admitted with abdominal swelling. He was found to have minimal ascites. He was found to have findings of alcoholic cirrhosis. He was started on prednisolone given his elevated Maddreys discriminant score. He is also being treated for alcohol withdrawals. He used to mg of IV Ativan last night. He has been afebrile. - Constitutional Vitals: Temp Pulse Resp BP Pulse Ox 98.5 F 93 17 134/92 93 10/27/17 06:30 10/27/17 06:30 10/27/17 06:30 10/27/17 06:30 10/27/17 06:30 General appearance: Present: A&O X 2, answers questions appropriately Exam: GEN: NAD CVS: RRR. S1, S2, No m/r/g RESP: CTAB ABD: Soft, NT, ND, +BS EXT: No edema. 2+ DP. No rashes NEURO: Nonfocal Internal Medicine: Result - Labs CBC & Chem 7: 10/27/17 03:40 10/27/17 03:40 Labs: Short CBC 10/27/17 Range/Units 03:40 WBC 9.1 (4.3-11.1) K/mcL Hgb 12.7 L (12.9-16.9) g/dL Hct 36.4 L (37.5-50.1) % Plt Count 136 L (140-400) K/mcL Neutrophils # 7.1 (1.6-8.9) K/mcL BMP 10/27/17 03:40 Sodium 140 Potassium 3.4 L Chloride 108 H Carbon Dioxide 26 BUN 5 L Creatinine 0.63 L Glucose 122 H Calcium 8.3 L Liver Function 10/27/17 Range/Units 03:40 Total Bilirubin 7.9 H (0.3-1.0) mg/dL AST 138 H (13-39) Units/L ALT 38 (7-52) Units/L Alkaline Phosphatase 207 H (34-104) Units/L Albumin 2.8 L (3.5-5.7) g/dL - ABG Interpretation ABG results: PT/INR, D-dimer PT 27.8 Seconds (9.4-12.1) H 10/26/17 02:47 - Impressions Impressions Abdomen Ultrasound 10/26/17 08:30 IMPRESSION: Limited evaluation secondary to body habitus and overlying bowel gas. The liver is diffusely increased in echogenicity and heterogeneous in echotexture compatible with underlying diffuse hepatocellular disease, hepatic steatosis. No obvious lesion is noted however the liver is difficult to penetrate and evaluation of the deeper portions is limited. Small amount of ascites. Gallbladder is limited in evaluation with mild wall thickening which may be related to underlying liver disease and ascites. D/ / 10/26/2017 10:07:21 Cody Ruff MD / marisela Interpreting Provider: Cody Ruff MD Consult Discharge Plan - Plan Referrals: NONE,PCP [Primary Care Provider] -
[2017-10-27] MEDS ORDERED: Potassium Chloride Elixir 20 MEQ/15 ML UDC PO ONE (10:07)
[2017-10-27] MEDS: *HR* LORazepam 2 MG/ML VIAL IVP PRN (20:47)
[2017-10-28] MEDS: D5% in 0.9% NACL 1,000 ML IVC SCH (02:44)
[2017-10-28 06:04] LABS: Basophils # 0.1 K/mcL (0.0-0.2); Basophils % 0.6 %; Eosinophils # 0.1 K/mcL (0.0-0.6); Eosinophils % 0.8 %; Hematocrit 34.1 % (37.5-50.1); Hemoglobin 11.9 g/dL (12.9-16.9); Immature Granulocytes % 1.1 % (0-4); Lymphocytes % 12.3 %; Mean Corpuscular HGB Conc 34.9 g/dL (31.6-35.5); Mean Corpuscular Hemoglobin 38.8 pg (28.0-33.3); Mean Corpuscular Volume 111.1 fL (83.0-100.0); Mean Platelet Volume 9.6 fL (9.4-12.4); Monocytes # 0.9 K/mcL (0.0-1.3); Monocytes % 11.7 %; Neutrophils # 5.8 K/mcL (1.6-8.9); Platelet Count 140 K/mcL (140-400); Red Blood Count 3.07 M/mcL (4.19-5.50); Red Cell Distribution Width 18.1 % (11.5-14.5); Segmented Neutrophils % 73.5 %
[2017-10-28 06:21] LABS: Alanine Aminotransferase 37 Units/L (7-52); Albumin 2.6 g/dL (3.5-5.7); Albumin/Globulin Ratio 1.1 (1.1-2.2); Alkaline Phosphatase 176 Units/L (34-104); Aspartate Amino Transferase 106 Units/L (13-39); BUN/Creatinine Ratio 8 (6-26); Bilirubin,Total 7.2 mg/dL (0.3-1.0); Blood Urea Nitrogen 5 mg/dL (6-20); Calcium 8.1 mg/dL (8.6-10.3); Carbon Dioxide 25 mEq/L (23-29); Chloride 113 mEq/L (98-107); Globulin 2.4 g/dL (2.4-3.5); Glucose 102 mg/dL (70-105); Osmolality,Calculated 291 (280-300); Potassium 3.5 mEq/L (3.5-5.1); Sodium 142 mEq/L (136-145); eGFR For African Americans > 60 (> 60); eGFR For Non-African Americans > 60 (> 60)
[2017-10-28 08:00] LABS: Anisocytosis 1+ (Not Present); Macrocytosis Present (Not Present); Platelet Estimate Normal (Normal)
--- NOTE | 2017-10-28 09:45 | Event Note ---
Date of Encounter: 10/28/17 Time of Encounter: 09:15 Pt seen in follow up per Dr De Leon's request. Pt has alcoholic hepatitis. Overall he states he is feeling well and is sitting up in the bed eating at this time. He does complain of diarrhea. Ammonia has improved may be able to decrease lactulose, will discuss with Dr De Leon.
[2017-10-28] MEDS: PrednisoLONE Oral Soln 15 MG/5 ML UDC PO SCH (09:47)
[2017-10-28] MEDS: Lactulose Oral Soln 20 GM/30 ML UDC PO SCH (09:47)
[2017-10-28] MEDS: Vitamin B Complex/Vit C/Vit E 1 EACH TABLET PO SCH (09:47)
[2017-10-28] MEDS: Folic Acid 1 MG TABLET PO SCH (09:47)
[2017-10-28] MEDS: Thiamine (B-1) 100 MG TABLET PO SCH (09:47)
[2017-10-28] MEDS: cefTRIAXone 1,000 MG in Water for inj. (sterile) 20 ML 10 ML IVP SCH (09:48)
[2017-10-28 10:55] VITALS: BP 124/83
--- NOTE | 2017-10-28 11:42 | Discharge Summary ---
Date of Encounter: 10/28/17 Time of Encounter: 11:37 - Discharge Diagnosis (1) Alcoholic hepatitis Priority: Primary Status: Acute Qualifiers: Ascites presence: with ascites Qualified Code(s): K70.11 - Alcoholic hepatitis with ascites (2) Ascites Priority: Primary Status: Chronic Qualifiers: Ascites type: due to alcoholic cirrhosis Qualified Code(s): K70.31 - Alcoholic cirrhosis of liver with ascites (3) Chronic liver disease Priority: Primary Status: Chronic (4) Decompensated liver disease Priority: Primary Status: Acute (5) Lactic acid acidosis Priority: Primary Status: Resolved (6) Alcohol withdrawal Priority: Primary Status: Acute Qualifiers: Complication of substance-induced condition: uncomplicated Qualified Code(s ): F10.230 - Alcohol dependence with withdrawal, uncomplicated - Discharge Medications Prescriptions: Folic Acid 1 mg PO DAILY #30 tablet Furosemide [Lasix] 20 mg PO DAILY #30 tablet Lactulose 20 gm PO TID #1000 ml Omeprazole [PriLOSEC] 20 mg PO DAILY@0630 #30 capsule. prednisoLONE [Prelone] 40 mg PO DAILY #30 udc Spironolactone [Aldactone] 50 mg PO DAILY #30 tablet Thiamine (B-1) [Vitamin B-1] 100 mg PO DAILY #30 tablet Vitamin B Complex/Vit C/Vit E [Stresstab] 1 each PO DAILY #30 tablet Home Medications: Folic Acid 1 mg PO DAILY #30 tablet 10/28/17 [Rx] Furosemide [Lasix] 20 mg PO DAILY #30 tablet 10/28/17 [Rx] Lactulose 20 gm PO TID #1000 ml 10/28/17 [Rx] Omeprazole [PriLOSEC] 20 mg PO DAILY@0630 #30 capsule. 10/28/17 [Rx] Spironolactone [Aldactone] 50 mg PO DAILY #30 tablet 10/28/17 [Rx] Thiamine (B-1) [Vitamin B-1] 100 mg PO DAILY #30 tablet 10/28/17 [Rx] Vitamin B Complex/Vit C/Vit E [Stresstab] 1 each PO DAILY #30 tablet 10/28/17 [ Rx] prednisoLONE [Prelone] 40 mg PO DAILY #30 udc 10/28/17 [Rx] Allergies/Adverse Reactions: 3 Allergy/AdvReac Type Severity Reaction Status Date / Time codeine Allergy Anaphylaxis Verified 10/23/17 07:04 Procedures/tests Complete & Pending: Procedures Performed prior 72 hours Category Date Time Status US abdomen limited [US] Routine Exams 10/26/17 08:30 Completed Date of admission: 10/23/17 04:45 Primary care physician: PCP NONE Consults: 10/25/17 09:08 Consult to Gastroenterology [CONS] Routine Consulting Provider: Pk Sánchez Reason for Consult: Alcoholic liver disease, jaundice Call Completed: Yes 10/26/17 11:34 Consult to Occupational Therapy [CONS] Routine Comment: Evaluate, develop and implement POC Reason for Consult: Generalized weakness, alcoholic hepatitis, withdrawal Consult to Physical Therapy [CONS] Routine Comment: Evaluate, develop and implement POC Reason for Consult: Generalized weakness, alcoholic hepatitis, withdrawal 10/27/17 09:41 Consult to Occupational Therapy [CONS] Routine Comment: Evaluate, develop and implement POC Reason for Consult: therapy/placement needs Consult to Physical Therapy [CONS] Routine Comment: Evaluate, develop and implement POC Reason for Consult: PT eval - Patient Status Disposition: Home, Self-Care Condition: Fair Overall status at discharge: patient is progressing back to baseline - Discharge Instructions Instructions: Spironolactone (By mouth), Furosemide (By mouth), Prednisone (By mouth), Omeprazole (By mouth), Folic Acid (By mouth), Lactulose (By mouth), Cirrhosis (DC), Alcohol Intoxication (DC), Alcohol Withdrawal (DC) Follow Up With: Eagle De Leon MD [Partnered Physician] - 11/10/17 11:45 am (2 weeks, pLease follow up as schedule...) NONE,PCP [Primary Care Provider] - Ashly Segundo CNP [Advanced Practice Nurse] - 11/03/17 10:30 am (Please follow up as schedule) - Diet and Activity Activity: increase activity as tolerated Diet: low salt diet Hospital course: Mr. Gallego is a 51 year old male who presented with subacute onset of abdominal swelling 2/2 ascites. He has a hx of HTN but denies any prior knowledge of liver disease. He presented because of 3 weeks hx of progressive abdominal swelling with increased abdo pressure. He denies having hepatitis viral infection but admited to drinking approx 8-10 shots of liquor daily or every other day at least for the last 10 years. He reported developing tremors of his hands if he doesn't drink regularly. In the ER he was noted to have elevated liver enzymes. Had a CT abdomen and pelvis showing hepatic steatosis with evidence of portal hypertension. It was cholelithiasis present. This was followed up for the abdominal ultrasound which showed small amount of ascites. He was admitted to the hospitalist service. He could not undergo paracentesis due to the small amount of ascites. He was seen by GI and will follow up with them regarding alcoholic hepatitis/cirrhosis. He did follow up suspect revised. He showed signs of confusion and a CTA was negative. He was started on Lasix was given elevated ammonia levels. His mental status cleared. We started him on spironolactone, Lasix, lactulose. We put him on Ativan and followed CIWA protocol for alcohol withdrawal. He had lactic acidosis initially which resolved with some IV fluids. We started him on prednisolone given alcoholic hepatitis with an elevated Maddreys discriminant fractions score. He will need to be on that for 28 days and will follow-up with GI and he will need to be tapered taper after that. He was stable for discharge on - Time Spent with Patient Total time spent providing and/or coordinating discharge services: - Constitutional Vitals: Temp Pulse Resp BP Pulse Ox 98.9 F 102 16 124/83 93 10/28/17 10:53 10/28/17 10:53 10/28/17 10:53 10/28/17 10:53 10/28/17 10:53 General appearance: Present: A&O X 2, answers questions appropriately Exam: GEN: NAD CVS: RRR. S1, S2, No m/r/g RESP: CTAB ABD: Soft, NT, ND, +BS EXT: No edema. 2+ DP. No rashes NEURO: Nonfocal
== END 2017-10-28 13:17 | disposition home or self-care (01) | DRG 433 ==
LOC: EMEROO 22:08 → 2ANU 22:08 → SUATTDRO 10-23 04:45 → 2ANU 10-23 18:44
PROVIDERS: ADMIT Family Medicine; ATTEND Internal Medicine

== ENCOUNTER 2022-02-25 15:11 | Inpatient (IN) ==
[2022-02-25] MEDS ORDERED: Isovue-370 500 ML BOTTLE IVP ONE (16:41)
[2022-02-25 17:08] LABS: Eosinophils % 1.5 %; Red Blood Count 2.95 M/mcL (4.19-5.50)
[2022-02-25 17:10] LABS: Basophils # 0.1 K/mcL (0.0-0.2); Basophils % 1.2 %; Eosinophils # 0.1 K/mcL (0.0-0.6); Hematocrit 31.7 % (37.5-50.1); Hemoglobin 11.7 g/dL (12.9-16.9); Immature Granulocytes % 0.9 % (0-4); Immature Platelets 4.2 % (1.1-6.1); Lymphocytes # 1.3 K/mcL (0.6-4.6); Lymphocytes % 16.9 %; Mean Corpuscular HGB Conc 36.9 g/dL (31.6-35.5); Mean Corpuscular Hemoglobin 39.7 pg (28.0-33.3); Mean Corpuscular Volume 107.5 fL (83.0-100.0); Mean Platelet Volume 9.7 fL (9.4-12.4); Monocytes % 13.4 %; Red Cell Distribution Width 17.3 % (11.5-14.5); Segmented Neutrophils % 66.1 %; White Blood Count 7.6 K/mcL (4.3-11.1)
[2022-02-25 17:16] LABS: INR 3.2; Prothrombin Time 35.3 Seconds (9.4-12.1)
[2022-02-25 17:26] LABS: Platelet Count 61 K/mcL (140-400)
[2022-02-25 17:27] LABS: Platelet Estimate Decreased (Normal)
[2022-02-25 17:29] LABS: Alanine Aminotransferase 31 Units/L (7-52); Albumin 2.6 g/dL (3.5-5.7); Alkaline Phosphatase 144 Units/L (34-104); Aspartate Amino Transferase 139 Units/L (13-39); BUN/Creatinine Ratio 8 (6-26); Bilirubin,Total 15.2 mg/dL (0.3-1.0); Blood Urea Nitrogen 6 mg/dL (6-20); Calcium 12.2 mg/dL (8.6-10.3); Carbon Dioxide 31 mEq/L (23-29); Chloride 94 mEq/L (98-107); Globulin 2.5 g/dL (2.4-3.5); Glucose 116 mg/dL (70-105); Lipase 79 Units/L (11-82); Osmolality,Calculated 273 (280-300); Potassium 3.1 mEq/L (3.5-5.1); Sodium 132 mEq/L (136-145); Total Protein 5.1 g/dL (6.4-8.9); Troponin I < 0.03 ng/mL (< 0.04); eGFR For African Americans > 60 (> 60); eGFR For Non-African Americans > 60 (> 60)
[2022-02-25] MEDS ORDERED: Melatonin 3 MG TABLET PO PRN (19:22)
[2022-02-25] MEDS ORDERED: Ondansetron ODT 4 MG TAB.RAPDIS SL PRN (19:22)
[2022-02-25] MEDS ORDERED: Naloxone 0.4 MG/ML INJ IVP PRN (19:22)
[2022-02-25] MEDS ORDERED: *HR* LORazepam 2 MG/ML VIAL IVP PRN ×2 (19:34)
[2022-02-25] MEDS ORDERED: Furosemide 20 MG TABLET PO ONE (19:43)
[2022-02-25] MEDS: Thiamine (B-1) 200 MG in 0.9 % Sodium Chloride 50 ML IVPB SCH (21:14)
[2022-02-26 02:26] LABS: Hepatitis B Surface Antigen Nonreactive (Nonreactive)
[2022-02-26 02:55] LABS: Hepatitis A Antibody IgM Nonreactive (Nonreactive)
[2022-02-26 02:56] LABS: Hepatitis B Core IgM Nonreactive (Nonreactive)
[2022-02-26 02:57] LABS: Hepatitis C Virus Antibody Nonreactive (Nonreactive)
[2022-02-26] MEDS ORDERED: PrednisoLONE Oral Soln 15 MG/5 ML UDC PO SCH (06:00)
[2022-02-26 06:47] LABS: Basophils # 0.1 K/mcL (0.0-0.2); Basophils % 1.4 %; Eosinophils # 0.1 K/mcL (0.0-0.6); Eosinophils % 1.8 %; Hemoglobin 11.7 g/dL (12.9-16.9); Immature Granulocytes % 0.9 % (0-4); Immature Platelets 4.4 % (1.1-6.1); Lymphocytes # 1.4 K/mcL (0.6-4.6); Mean Corpuscular HGB Conc 35.5 g/dL (31.6-35.5); Mean Corpuscular Hemoglobin 38.6 pg (28.0-33.3); Mean Corpuscular Volume 108.9 fL (83.0-100.0); Mean Platelet Volume 9.7 fL (9.4-12.4); Monocytes # 0.8 K/mcL (0.0-1.3); Monocytes % 12.7 %; Red Blood Count 3.03 M/mcL (4.19-5.50); Red Cell Distribution Width 17.7 % (11.5-14.5); Segmented Neutrophils % 62.2 %; White Blood Count 6.5 K/mcL (4.3-11.1)
[2022-02-26 06:53] LABS: Platelet Count 71 K/mcL (140-400)
[2022-02-26 06:58] LABS: INR 3.1; Prothrombin Time 34.7 Seconds (9.4-12.1)
[2022-02-26 07:02] LABS: Alanine Aminotransferase 29 Units/L (7-52); Albumin 2.4 g/dL (3.5-5.7); Albumin/Globulin Ratio 0.9 (1.1-2.2); Alkaline Phosphatase 141 Units/L (34-104); Aspartate Amino Transferase 131 Units/L (13-39); BUN/Creatinine Ratio 7 (6-26); Bilirubin,Total 14.2 mg/dL (0.3-1.0); Blood Urea Nitrogen 5 mg/dL (6-20); Calcium 7.5 mg/dL (8.6-10.3); Carbon Dioxide 35 mEq/L (23-29); Chloride 97 mEq/L (98-107); Globulin 2.6 g/dL (2.4-3.5); Glucose 112 mg/dL (70-105); Magnesium 1.7 mg/dL (1.6-2.6); Osmolality,Calculated 278 (280-300); Phosphorous 2.1 mg/dL (2.7-4.5); Potassium 3.4 mEq/L (3.5-5.1); Sodium 135 mEq/L (136-145); eGFR For African Americans > 60 (> 60); eGFR For Non-African Americans > 60 (> 60)
[2022-02-26] MEDS: Furosemide 40 MG TABLET PO SCH (08:24)
[2022-02-26] MEDS: Folic Acid 1 MG TABLET PO SCH (08:26)
[2022-02-26] MEDS: Nicotine 7 MG PATCH.TD24 TD SCH (08:27)
[2022-02-26] MEDS: Thiamine (B-1) 200 MG in 0.9 % Sodium Chloride 50 ML IVPB SCH (09:24)
[2022-02-26 09:28] LABS: Folate 5.4 ng/mL (3.0-16.0); Vitamin B12 > 1500 pg/mL (250-1100)
[2022-02-26] MEDS: Albumin 25% 25gram/100mL 25 GM/100 ML IV.SOLN IVPB SCH ×2 (15:48→18:59)
[2022-02-26 16:57] LABS: Bilirubin,Urine Moderate (Negative); Blood,Urine Negative (Negative); Clarity,Urine Clear (Clear); Color,Urine Dark-Yellow (Yellow); Glucose,Urine (UA) Normal (Normal); Ketones,Urine Negative (Negative); Leukocyte Esterase,Urine Negative (Negative); Nitrite,Urine Negative (Negative); PH,Urine 6.5 pH Units (5.0-8.0); Protein,Urine Negative (Neg-Trace); Urobilinogen,Urine >=8.0 mg/dL (Normal)
[2022-02-27 04:57] LABS: Hemoglobin 11.1 g/dL (12.9-16.9); Mean Corpuscular Hemoglobin 39.1 pg (28.0-33.3); Red Blood Count 2.84 M/mcL (4.19-5.50)
[2022-02-27 04:59] LABS: Hematocrit 31.4 % (37.5-50.1); Immature Platelets 6.2 % (1.1-6.1); Mean Corpuscular HGB Conc 35.4 g/dL (31.6-35.5); Mean Corpuscular Volume 110.6 fL (83.0-100.0); Mean Platelet Volume 10.2 fL (9.4-12.4); Red Cell Distribution Width 17.6 % (11.5-14.5); White Blood Count 7.1 K/mcL (4.3-11.1)
[2022-02-27 05:18] LABS: Alanine Aminotransferase 25 Units/L (7-52); Albumin 2.8 g/dL (3.5-5.7); Albumin/Globulin Ratio 1.2 (1.1-2.2); Alkaline Phosphatase 124 Units/L (34-104); Aspartate Amino Transferase 107 Units/L (13-39); BUN/Creatinine Ratio 8 (6-26); Bilirubin,Total 15.1 mg/dL (0.3-1.0); Blood Urea Nitrogen 6 mg/dL (6-20); Carbon Dioxide 34 mEq/L (23-29); Chloride 99 mEq/L (98-107); Globulin 2.4 g/dL (2.4-3.5); Glucose 100 mg/dL (70-105); Osmolality,Calculated 282 (280-300); Potassium 3.3 mEq/L (3.5-5.1); Sodium 137 mEq/L (136-145); Total Protein 5.2 g/dL (6.4-8.9); eGFR For African Americans > 60 (> 60); eGFR For Non-African Americans > 60 (> 60)
[2022-02-27] MEDS: Nicotine 7 MG PATCH.TD24 TD SCH (07:59)
[2022-02-27] MEDS: Folic Acid 1 MG TABLET PO SCH (07:59)
[2022-02-27] MEDS: Furosemide 40 MG TABLET PO SCH (07:59)
[2022-02-27] MEDS: Thiamine (B-1) 200 MG in 0.9 % Sodium Chloride 50 ML IVPB SCH (08:23)
[2022-02-27 10:05] LABS: INR 3.5; Prothrombin Time 38.7 Seconds (9.4-12.1)
[2022-02-27] MEDS: methylPREDNISolone 125 MG/2 ML VIAL IVP SCH (11:03)
[2022-02-27] MEDS: Albumin 25% 25gram/100mL 25 GM/100 ML IV.SOLN IVPB SCH ×2 (11:04→13:12)
[2022-02-28 00:44] LABS: Mean Platelet Volume 10.8 fL (9.4-12.4)
[2022-02-28 00:46] LABS: Hematocrit 32.1 % (37.5-50.1); Hemoglobin 11.3 g/dL (12.9-16.9); Mean Corpuscular HGB Conc 35.2 g/dL (31.6-35.5); Mean Corpuscular Hemoglobin 39.4 pg (28.0-33.3); Mean Corpuscular Volume 111.8 fL (83.0-100.0); Red Blood Count 2.87 M/mcL (4.19-5.50); White Blood Count 7.3 K/mcL (4.3-11.1)
[2022-02-28 00:53] LABS: INR 4.2
[2022-02-28 00:57] LABS: Prothrombin Time 46.7 Seconds (9.4-12.1)
[2022-02-28 01:02] LABS: Alanine Aminotransferase 23 Units/L (7-52); Albumin 3.3 g/dL (3.5-5.7); Albumin/Globulin Ratio 1.4 (1.1-2.2); Alkaline Phosphatase 140 Units/L (34-104); Aspartate Amino Transferase 93 Units/L (13-39); BUN/Creatinine Ratio 10 (6-26); Bilirubin,Total 15.7 mg/dL (0.3-1.0); Blood Urea Nitrogen 8 mg/dL (6-20); Calcium 8.3 mg/dL (8.6-10.3); Carbon Dioxide 30 mEq/L (23-29); Chloride 98 mEq/L (98-107); Globulin 2.4 g/dL (2.4-3.5); Glucose 140 mg/dL (70-105); Osmolality,Calculated 283 (280-300); Potassium 3.6 mEq/L (3.5-5.1); Sodium 136 mEq/L (136-145); Total Protein 5.7 g/dL (6.4-8.9); eGFR For African Americans > 60 (> 60); eGFR For Non-African Americans > 60 (> 60)
[2022-02-28] MEDS: Furosemide 40 MG TABLET PO SCH (08:09)
[2022-02-28] MEDS: methylPREDNISolone 125 MG/2 ML VIAL IVP SCH (08:09)
[2022-02-28] MEDS: Folic Acid 1 MG TABLET PO SCH (08:09)
[2022-02-28] MEDS: Nicotine 7 MG PATCH.TD24 TD SCH (08:10)
[2022-02-28] MEDS: Albumin 25% 25gram/100mL 25 GM/100 ML IV.SOLN IVPB SCH ×2 (09:32→11:02)
[2022-02-28] MEDS: *HR* Phytonadione 5 MG TABLET PO SCH (13:11)
[2022-03-01] MEDS: *HR* LORazepam 2 MG/ML VIAL IVP PRN ×2 (04:10→22:26)
[2022-03-01] MEDS ORDERED: Haloperidol Lactate 5 MG/ML VIAL IVP ONE (04:21)
[2022-03-01] MEDS ORDERED: Dexmedetomidine HCl 400 MCG/100 ML MLS IVC ONE (07:32)
[2022-03-01 08:48] LABS: Red Cell Distribution Width 17.2 % (11.5-14.5)
[2022-03-01 08:50] LABS: Hematocrit 30.5 % (37.5-50.1); Hemoglobin 10.5 g/dL (12.9-16.9); Immature Platelets 6.7 % (1.1-6.1); Mean Corpuscular HGB Conc 34.4 g/dL (31.6-35.5); Mean Corpuscular Volume 113.4 fL (83.0-100.0); Mean Platelet Volume 10.4 fL (9.4-12.4); Red Blood Count 2.69 M/mcL (4.19-5.50); White Blood Count 6.6 K/mcL (4.3-11.1)
[2022-03-01 08:55] LABS: INR 3.7; Prothrombin Time 41.1 Seconds (9.4-12.1)
[2022-03-01 08:59] LABS: Alanine Aminotransferase 21 Units/L (7-52); Albumin 3.2 g/dL (3.5-5.7); Albumin/Globulin Ratio 1.6 (1.1-2.2); Alkaline Phosphatase 105 Units/L (34-104); Aspartate Amino Transferase 67 Units/L (13-39); BUN/Creatinine Ratio 11 (6-26); Bilirubin,Total 12.8 mg/dL (0.3-1.0); Blood Urea Nitrogen 8 mg/dL (6-20); Calcium 8.2 mg/dL (8.6-10.3); Carbon Dioxide 34 mEq/L (23-29); Chloride 105 mEq/L (98-107); Glucose 127 mg/dL (70-105); Osmolality,Calculated 292 (280-300); Potassium 3.4 mEq/L (3.5-5.1); Sodium 141 mEq/L (136-145); Total Protein 5.2 g/dL (6.4-8.9); eGFR For African Americans > 60 (> 60); eGFR For Non-African Americans > 60 (> 60)
[2022-03-01] MEDS ORDERED: Lactulose Oral Soln 20 GM/30 ML UDC PO SCH (09:30)
[2022-03-01] MEDS: Folic Acid 1 MG TABLET PO SCH (10:05)
[2022-03-01] MEDS: *HR* Phytonadione 5 MG TABLET PO SCH (10:06)
[2022-03-01] MEDS: Furosemide 40 MG TABLET PO SCH (10:06)
[2022-03-01] MEDS: methylPREDNISolone 125 MG/2 ML VIAL IVP SCH (10:13)
[2022-03-01] MEDS: Nicotine 7 MG PATCH.TD24 TD SCH (10:13)
[2022-03-01 11:11] LABS: ABG Base Excess 5 mEq/L (-2 to 3); ABG HCO3 31 mEq/L (21-27); ABG Oxygen Saturation 97 % (95-98); ABG PCO2 47 mmHg (35-45); ABG PH 7.42 pH Units (7.32-7.45); ABG PO2 91 mmHg (85-104); ABG TCO2 32 mEq/L (20-26)
[2022-03-01] MEDS: Lactulose Oral Soln 20 GM/30 ML UDC PO SCH ×2 (13:00→22:18)
[2022-03-01] MEDS: Lactulose 200 GM, Sodium Chloride IRRigation 700 ML RC SCH ×3 (14:15→23:07)
[2022-03-01] MEDS ORDERED: *HR* LORazepam 1 MG TABLET PO ONE (15:39)
[2022-03-02 02:42] LABS: Hematocrit 32.3 % (37.5-50.1); Hemoglobin 11.1 g/dL (12.9-16.9); Mean Corpuscular HGB Conc 34.4 g/dL (31.6-35.5); Mean Corpuscular Hemoglobin 39.9 pg (28.0-33.3); Mean Corpuscular Volume 116.2 fL (83.0-100.0); Mean Platelet Volume 10.8 fL (9.4-12.4); Red Blood Count 2.78 M/mcL (4.19-5.50); Red Cell Distribution Width 17.4 % (11.5-14.5); White Blood Count 5.5 K/mcL (4.3-11.1)
[2022-03-02 02:49] LABS: INR 3.6; Prothrombin Time 39.6 Seconds (9.4-12.1)
[2022-03-02 03:02] LABS: Alanine Aminotransferase 22 Units/L (7-52); Albumin/Globulin Ratio 1.4 (1.1-2.2); Alkaline Phosphatase 92 Units/L (34-104); Aspartate Amino Transferase 69 Units/L (13-39); BUN/Creatinine Ratio 16 (6-26); Bilirubin,Total 13.8 mg/dL (0.3-1.0); Blood Urea Nitrogen 12 mg/dL (6-20); Calcium 8.5 mg/dL (8.6-10.3); Carbon Dioxide 30 mEq/L (23-29); Chloride 108 mEq/L (98-107); Globulin 2.1 g/dL (2.4-3.5); Glucose 130 mg/dL (70-105); Osmolality,Calculated 300 (280-300); Sodium 144 mEq/L (136-145); Total Protein 5.1 g/dL (6.4-8.9); eGFR For African Americans > 60 (> 60); eGFR For Non-African Americans > 60 (> 60)
[2022-03-02] MEDS: Lactulose Oral Soln 20 GM/30 ML UDC PO SCH ×3 (09:21→21:12)
[2022-03-02] MEDS: Furosemide 40 MG TABLET PO SCH (09:23)
[2022-03-02] MEDS: Folic Acid 1 MG TABLET PO SCH (09:23)
[2022-03-02] MEDS: Nicotine 7 MG PATCH.TD24 TD SCH (09:23)
[2022-03-02] MEDS: PrednisoLONE Oral Soln 15 MG/5 ML UDC PO SCH (09:24)
[2022-03-02] MEDS: *HR* Phytonadione 5 MG TABLET PO SCH (09:39)
[2022-03-02] MEDS: Lactulose 200 GM, Sodium Chloride IRRigation 700 ML RC SCH ×3 (12:08→21:06)
[2022-03-02] MEDS ORDERED: *HR* LORazepam 1 MG TABLET PO PRN (18:44)
[2022-03-03 05:18] LABS: Hematocrit 35.2 % (37.5-50.1); Hemoglobin 12.2 g/dL (12.9-16.9); Immature Platelets 6.3 % (1.1-6.1); Mean Corpuscular HGB Conc 34.7 g/dL (31.6-35.5); Mean Corpuscular Volume 115.4 fL (83.0-100.0); Mean Platelet Volume 10.8 fL (9.4-12.4); Red Blood Count 3.05 M/mcL (4.19-5.50); Red Cell Distribution Width 17.1 % (11.5-14.5)
[2022-03-03 05:41] LABS: Alanine Aminotransferase 26 Units/L (7-52); Albumin 3.2 g/dL (3.5-5.7); Albumin/Globulin Ratio 1.4 (1.1-2.2); Alkaline Phosphatase 110 Units/L (34-104); Aspartate Amino Transferase 61 Units/L (13-39); BUN/Creatinine Ratio 13 (6-26); Bilirubin,Total 13.2 mg/dL (0.3-1.0); Blood Urea Nitrogen 10 mg/dL (6-20); Calcium 8.3 mg/dL (8.6-10.3); Carbon Dioxide 31 mEq/L (23-29); Chloride 102 mEq/L (98-107); Globulin 2.3 g/dL (2.4-3.5); Glucose 186 mg/dL (70-105); Osmolality,Calculated 294 (280-300); Potassium 3.2 mEq/L (3.5-5.1); Sodium 140 mEq/L (136-145); Total Protein 5.5 g/dL (6.4-8.9); eGFR For African Americans > 60 (> 60); eGFR For Non-African Americans > 60 (> 60)
[2022-03-03 07:24] VITALS: O2SAT 92
[2022-03-03] MEDS: Folic Acid 1 MG TABLET PO SCH (07:37)
[2022-03-03] MEDS: PrednisoLONE Oral Soln 15 MG/5 ML UDC PO SCH (07:37)
[2022-03-03] MEDS: Nicotine 7 MG PATCH.TD24 TD SCH (07:37)
[2022-03-03] MEDS: Furosemide 40 MG TABLET PO SCH (07:37)
[2022-03-03] MEDS: Lactulose Oral Soln 20 GM/30 ML UDC PO SCH ×2 (07:38→13:24)
[2022-03-03] MEDS: Lactulose 200 GM, Sodium Chloride IRRigation 700 ML RC SCH (07:38)
[2022-03-03 08:27] LABS: INR 3.3; Prothrombin Time 36.6 Seconds (9.4-12.1)
[2022-03-03 11:34] VITALS: PULSE 86; TEMP 99.3
[2022-03-03] MEDS ORDERED: Lactobacillus 1 EACH CAP.SPRINK PO SCH (12:15)
[2022-03-03 13:04] VITALS: BP 136/78
== END 2022-03-03 14:45 | disposition home or self-care (01) | DRG 433 ==
LOC: EMEROOARM 15:11 → 3NENU 15:11 → SUATTDRO 19:33 → 3NENU 20:19 → 2NNU 03-01 10:51
PROVIDERS: ADMIT Internal Medicine; ATTEND Family Medicine